=== PATIENT | male | born 1980 ===

== ENCOUNTER → 2019-02-22 | Outpatient (CLI) | payer OTHER ==
[~2019-02-22] MED LIST: METH-38 PO; TRAM-48 PO
--- NOTE | 2019-02-22 10:44 | PAIN ---
DATE OF SERVICE: 02/22/2019 INITIAL CONSULTATION FOR PAIN CLINIC CHIEF COMPLAINT: Low back pain. HISTORY OF PRESENT ILLNESS: This is a 38-year-old male who presents with history of pain in low back radiating to bilateral lower extremities, mostly in the posterior gluteus, right equal to left. 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 The patient reports it is constant, sharp, stabbing, now aching. He has had trigger point injections and physical therapy, counseling, chiropractic treatment, acupuncture, exercise, which is ongoing. He has tried Toradol injections, oxycodone and tramadol, all of which do decrease the pain. Oxycodone has been the most effective for this in combination with Robaxin. The patient reports the pain is intense, constant, becoming more aching and dull, worse with activity, standing, walking, changing positions, can woke him from up from sleep at night, can be anything from standing to walking or reaching down to tie his shoes, it will exacerbate the pain significantly. The patient reports his pain disability rating is a 9 on a scale of 10 with family and home responsibilities, recreation, social activity, and sexual behavior, 10 with occupational activities, 5 with self-care and 5 with life support activities. The patient did have MRI scans at [place], [place]; however, these are not available at time of this dictation. We have requested the report on this. PAST MEDICAL HISTORY: Significant for hearing loss; cigarette smoking, quit in 2013, history of traumatic brain injury and concussions, arthritis. PREVIOUS SURGERIES: Include left eye surgery, airway reconstruction, lipoma left shoulder excision, hairline fracture of the neck in 2002, bilateral knee scopes, left jaw fracture and shrapnel removal. CURRENT MEDICATIONS: Include Ultram and Robaxin. ALLERGIES: THE PATIENT IS ALLERGIC TO CODEINE. FAMILY HISTORY: Significant for no major medical problems or conditions he is aware of. SOCIAL HISTORY: The patient does not drink alcohol, does not smoke, and does not use any illegal, illicit or recreational drugs. He is single, is currently in active , but in custody in [place], [place]. REVIEW OF SYSTEMS: The patient's review of systems is positive for those items mentioned in history of present illness. All systems reviewed and otherwise negative. It is complete, full and well documented on the patient's chart. PHYSICAL EXAMINATION: VITAL SIGNS: The patient's blood pressure is 141/90, pulse 79, respirations 16, temperature 97.8 degrees Fahrenheit. Height 5 feet 9 inches, weight is 198 pounds. GENERAL: The patient is awake, alert, oriented, appropriate, very pleasant demeanor. HEENT: Head shows normocephalic, atraumatic. Extraocular movements are intact and symmetrical. Oral cavity: Mucous membranes moist and pink. NECK: Shows anterior throat supple. CHEST: Shows normal on inspection. Breath sounds are clear bilaterally. HEART: Shows S1, S2 clear. No murmurs auscultated. ABDOMEN: Soft, nontender, nondistended. No palpable organomegaly is noted. No rebound or guarding demonstrated. BACK: Shows spine grossly in the midline. Normal appearing thoracic kyphosis and lumbar lordotic curvature. Lumbar paraspinous muscle shows symmetrical on inspection. On palpation, there is some moderate tenderness diffusely bilaterally, diffusely without significant radiation. The patient's neck shows full rotational motion of cervical spine, both laterally as well as extension and flexion without significant difficulty. The patient's upper extremities show deep tendon reflexes 2+ in the biceps and triceps tendons. Suit Maker strength is 5/5 as is biceps and triceps flexion, symmetrical and equal. The patient's low back shows lumbar paraspinous muscle symmetrical on inspection, with palpation shows some moderate tenderness diffusely bilaterally, but only diffusely without significant radiation. The patient shows good rotational motion with some minor tenderness with extension, but not with forward flexion, and not with right and left lateral rotation past 10 degrees. The patient shows no tenderness over the spinous processes, sacrum or sacroiliac regions. EXTREMITIES: Lower extremities show deep tendon reflexes at 2+ in the patellar, 1+ tendo-calcaneus tendons. Motor exam is strong with 5/5 dorsiflexion, extension, quadriceps and hamstring flexion symmetrical. Peripheral pulses are 1+ posterior tibial. No peripheral edema is noted bilaterally. The patient's skin shows warm and dry, good turgor. No edema. No sores, rashes or bruising throughout. IMPRESSION: 1. This is a 38-year-old male with approximate a 17-year history of low back pain, bilateral lower extremity pain with some radicular quality; however, significantly in the low back, more than the legs. 2. MRI scan is pending results. 3. Hearing loss. 4. Arthritis history. PLAN: Options were discussed with the patient including conservative medical managements, physical therapies and interventional techniques. He would like to pursue interventional techniques, he has not had any performed with his low back. We discussed a lumbar epidural steroid injection, used description as well as anatomical models to describe the procedure. The patient would like to proceed. We will wait for MRI scan results from [place], [place], and plan on lumbar epidural steroid injection on the patient's return. In the meantime, the patient will continue doing stretching and strengthening exercises as prescribed. Concerning the patient's tramadol use, at this point, we will wait to taper down until the patient has had epidural steroid injection to assess the effectiveness of this, if effective we would taper down on a schedule reduction of about 10% medication every 2 weeks as tolerated. RIC EASON MD DR: [email or web address]/yue JOB#: [id number] / [id number]
== END | disposition home or self-care (01) ==
LOC: PNCL 07:38 → EEVIPCON 08:00
PROVIDERS: ATTEND Anesthesiology
DX: M54.5 Low back pain (principal); H91.8X9 Other specified hearing loss, unspecified ear; M19.90 Unspecified osteoarthritis, unspecified site; Z87.891 Personal history of nicotine dependence; Z88.5 Allergy status to narcotic agent
CPT/HCPCS: G0463